=== PATIENT | male | born 1940 | race African-American/Black ===

== ENCOUNTER 2017-02-16 17:41 | Inpatient (IN) | payer OTHER ==
[~2017-02-16] VITALS: Ht 185.4 cm; Wt 68.0 kg
--- NOTE | ~2017-02-16 | 2DMMODE ---
[facility] [address] [facility] [place] [address] 2 D/M-MODE ECHOCARDIOGRAM Name: Johana SPAIN Room #: 463-P [facility] IN [facility]#: [id number] Admission: 02/16/17 Attend Phys: Malik Herman MD Discharge: Date of : 44 Date of Service: 02/17/17 1225 Report #: [id number] THIS REPORT FOR: //name// APPROVED REPORT Study performed: 02/17/2017 09:02:38 EXAM: Comprehensive 2D, Doppler, and color-flow Echocardiogram Patient Location: Bedside Room #: 463 Status: on-call Other Information Study Quality: Adequate/limited mobility Indications Congestive Heart Failure Hx: ISCM, CHF, ICD, HTN, HLP 2D Dimensions LVEF(%): 28.47 (>50%) IVSd: 11.81 (7-11mm) LVOT Diam: 21.88 (18-24mm) LVDd: 63.53 mm PWd: 12.33 (7-11mm) LVDs: 54.88 (25-40mm) Aortic Root: 35.69 mm Noriega's LVEF: 28.47 % Volumes Left Atrial Volume (Systole) Single Plane 4CH: 127.05 mL Single Plane 2CH: 98.03 mL LA ESV Index: 71.00 mL/m2 Aortic Valve AoV Peak Ravinder.: 1.01 m/s AO Peak Gr.: 4.08 mmHg LVOT Max P.31 mmHg LVOT Max V: 0.76 m/s JHONY Vmax: 2.83 cm2 Mitral Valve E/A Ratio: 2.2 MV Decel. Time: 123.23 ms MV E Max Ravinder.: 0.84 m/s MV A Ravinder.: 0.38 m/s MV PHT: 35.74 ms [facility] [place] [address] 2 D/M-MODE ECHOCARDIOGRAM Name: Johana SPAIN Room #: 463-P [facility] IN ..#: [id number] Admission: 02/16/17 Attend Phys: Malik Herman MD Discharge: Date of : 44 Date of Service: 02/17/17 1225 Report #: [id number] IVRT: 64.59 ms Pulmonary Valve PV Peak Ravinder.: 0.79 m/s PV Peak Gr.: 2.49 mmHg Tricuspid Valve TR Peak Ravinder.: 3.01 m/s RAP Estimate: 15.00 mmHg TR Peak Gr.: 36.26 mmHg PA Pressure: 51.00 mmHg Left Ventricle Left ventricle is dilated. There is normal left ventricular wall thickness. Left ventricular systolic function is severely decreased. LVEF is 20%. Severe diastolic dysfunction is present (restrictive filling). Right Ventricle The right ventricle is normal size. Right ventricle is mildly hypokinetic. Device lead is present in the right ventricle. Atria Left atrium is dilated. Right atrium is dilated. Aortic Valve The Aortic valve is mildly sclerotic. No aortic regurgitation is present. There is no aortic valvular stenosis. Mitral Valve Mitral valve leaflets are mildly calcified. Mild mitral annular calcification. Moderate mitral regurgitation. Tricuspid Valve The tricuspid valve is normal in structure. There is mild to moderate tricuspid regurgitation. The right atrial pressure is estimated at 15 mmHg. There is moderate pulmonary hypertension with an estimated PAP of 50mmHg. Pulmonic Valve The pulmonary valve is normal in structure. Trace to mild pulmonic regurgitation. Great Vessels The aortic root is normal in size. Ascending aorta is not well visualized. IVC is dilated and collapses <50% with inspiration. [address] [address] 2 D/M-MODE ECHOCARDIOGRAM Name: Johana SPAIN Room #: 463-P [facility] IN ..#: [id number] Admission: 02/16/17 Attend Phys: Malik Herman MD Discharge: Date of : 44 Date of Service: 02/17/17 1225 Report #: [id number] Pericardium There is no pericardial effusion. <Conclusion> Left ventricle is dilated. Left ventricular systolic function is severely decreased. LVEF is 20%. Severe diastolic dysfunction is present (restrictive filling). The Aortic valve is mildly sclerotic. There is no aortic valvular stenosis. Mitral valve leaflets are mildly calcified. Mild mitral annular calcification. The tricuspid valve is normal in structure. There is mild to moderate tricuspid regurgitation. The right atrial pressure is estimated at 15 mmHg. There is moderate pulmonary hypertension with an estimated PAP of 50mmHg. There is no pericardial effusion. <ELECTRONICALLY SIGNED> By: Rickey Rivers MD 02/17/17 1225 1225 1225 Rickey Rivers MD /INF
--- NOTE | ~2017-02-16 | HC ---
[facility] [place] [address] CONSULTATION Name: Johana SPAIN Room #: 463-P ADM IN .R.#: [id number] Admission: 02/16/17 Attend Phys: Malik Herman MD Discharge: Date of : 42 Report #: [id number] THIS REPORT FOR: //name// CC: Malik Fu DATE OF SERVICE: 02/17/2017 NEPHROLOGY CONSULTATION REASON FOR CONSULTATION: Chronic kidney disease. HISTORY OF PRESENT ILLNESS: The patient has long-standing ischemic cardiomyopathy with decreased left ventricular ejection fraction. He has had an AICD in for 10 years. He has chronic kidney disease as well documented in the past records, with elevated creatinines; currently creatinine at 2.3. He presents with progressive exertional dyspnea and orthopnea, which has really been going on for 5 months, but worsened in the last several days. At the time of admission, he did have some pulmonary vascular congestion and also urinary tract infection. He had an elevated lactic acid as well. PAST MEDICAL HISTORY: In addition to the above, he has had a previous history of primary liver cancer treated with implants and embolization 3 years ago, followed by Dr. Hyde, no chemotherapy. He did have prior history of cardiac arrest and prior history before that of hypertension and an inguinal hernia repair. HOME MEDICATIONS: Include aspirin 325 mg daily, clopidogrel 75 mg daily, carvedilol 12.5 mg b.i.d., furosemide 80 mg daily, potassium 20 mEq b.i.d., warfarin and atorvastatin 40 mg daily. SOCIAL HISTORY: He was a heavy smoker, but quit about 19 years ago. No substantial alcohol. He lives at home with his . REVIEW OF SYSTEMS: GENERAL: He has been feeling poorly and had been weak. EYES: His vision is okay, without problems there. ENT: Hearing okay, swallows okay. Denies mouth sores or ulcers. ENDOCRINE: No diabetes or thyroid disease. RESPIRATORY: Easily short-winded with cough and feeling that he cannot get a deep breath. CARDIAC: There has been no recent chest pain or swelling in his legs. No arrhythmias. GASTROINTESTINAL: No nausea, vomiting, diarrhea or bloody stools. GENITOURINARY: Occasionally, he has some urgency. No hematuria or stones. NEUROLOGIC: No seizure, syncope or stroke. He just has a generalized weakness. [address] [address] CONSULTATION Name: JUDITJohana Room #: 463-P [facility] IN ..#: [id number] Admission: 02/16/17 Attend Phys: Malik Herman MD Discharge: Date of : 42 Report #: [id number] SKELETAL: Denies joint pain or arthritis. SKIN: No skin rashes, lesions or ulcers. FAMILY HISTORY: Several family members on dialysis. Heavy family history for hypertension. Heavy family history for heart disease and a couple of family members with diabetes as well. Extensive history taken from the patient, from the who is at the bedside and from electronic medical record. PHYSICAL EXAMINATION: GENERAL: This is a chronically ill-appearing, thin and somewhat cachectic gentleman, who does not appear to be in acute distress, but does get a little short-winded with talking. SKIN: Unremarkable. SKELETAL: Well developed. HEENT: Extraocular movements are full. Vision intact with corrective lenses. Hearing intact. Mucous membranes moist. NECK: Supple. No carotid bruits are heard. CHEST: Shows bibasilar crackles. HEART: Regular. ABDOMEN: Soft and nontender. EXTREMITIES: Show trace to 1+ ankle edema. LABORATORY DATA: Creatinine 2.3, potassium 4.5 and BUN 53. AST is 79, ALT 74. Albumin 2.8. Hemoglobin 11.9. Urinalysis did show what appears to be UTI, with positive nitrite, white cells and some bacteria, but no proteinuria. ASSESSMENT AND PLAN: 1. Chronic kidney disease. He has chronic kidney disease in the setting of very poor cardiac performance. He has had long-standing prior hypertension. He probably has some underlying nephrosclerosis on top of that with degree of cardiorenal disease and this likely is leading to some difficulty with treating his volume overload. I will introduce torsemide at 40 mg twice daily, which I think should help, although maintenance chronic dose may just be once daily. He probably could do a little better on salt in his diet. We discussed with the patient and his . 2. Urinary tract infection, being treated, cultures pending. 3. Severe ischemic cardiomyopathy with defibrillator. 4. Prior history of severe hypertension. 5. Liver cancer. This may be an ongoing problem. This could well be what is producing the lactic acid, the elevated transaminases, etc., although passive congestion could be playing a role in this patient as well. <ELECTRONICALLY SIGNED> By: Kody Saldaña MD 02/18/17 0746 1025 1520 Kody Saldaña MD /nt
--- NOTE | ~2017-02-16 | HC ---
[facility] [place] [address] CONSULTATION Name: Johana SPAIN Room #: 463-P [facility] IN ..#: [id number] Admission: 02/16/17 Attend Phys: Malik Herman MD Discharge: 02/19/17 Date of : 42 Report #: [id number] THIS REPORT FOR: //name// CC: Malki Fu REASON FOR CONSULTATION: CHF. HISTORY OF PRESENT ILLNESS: The patient is a 77-year-old with history of ischemic cardiomyopathy, coronary artery disease, chronic renal insufficiency, liver cancer who follows with Dr. Perez. The patient reports that he has a followup appointment with Dr. Perez in about a month. The patient reports that since September, he has been experiencing worsening exertional dyspnea and fatigue. Over the past several days, his shortness of breath has worsened. He has now been experiencing some PND and orthopnea. He denies any problems with chest pain or chest tightness. He denies any presyncope, syncope or ICD shocks. He has experienced continued weight loss. REVIEW OF SYSTEMS: GENERAL: No fevers or chills. HEENT: No blurred vision. CARDIOVASCULAR: As above. PULMONARY: No productive cough. GASTROINTESTINAL: No nausea or vomiting. GENITOURINARY: No dysuria. MUSCULOSKELETAL: No myalgias or arthralgias. ENDOCRINE: No heat or cold intolerance. NEUROLOGIC: No focal weakness. PAST MEDICAL HISTORY: 1. Ischemic cardiomyopathy, EF of 19% based on a nuclear stress test in September 2011. 2. Coronary artery disease, status post myocardial infarction. 3. Cardiac catheterization by Dr. Perez in 2012 with stenting of the LAD with a drug-eluting stent for in-stent restenosis, also with a drug-eluting stent to the ramus. 4. Medtronic ICD, status post prior cardiac arrest. 5. Hypertension. 6. Hyperlipidemia. 7. Chronic renal insufficiency. 8. Prior TIA. 9. Liver cancer. SOCIAL HISTORY: Quit smoking. FAMILY HISTORY: Noncontributory. [facility] [address] [place] [address] CONSULTATION Name: Johana SPAIN Room #: 463-P [facility].#: [id number] Admission: 02/16/17 Attend Phys: Malik Herman MD Discharge: 02/19/17 Date of : 42 Report #: [id number] ALLERGIES: No known drug allergies. MEDICATIONS: Reviewed including warfarin, Coreg, aspirin and Plavix. PHYSICAL EXAMINATION: VITAL SIGNS: Temperature is 36.7, pulse 81, respiratory rate 20, blood pressure 94/63, and sats 97%. GENERAL: He is in no acute distress. HEENT: Oropharynx is clear. NECK: Supple, no thyromegaly or carotid bruits. HEART: Regular rate and rhythm. He has a displaced PMI. He does have an S3. He has mildly elevated jugular venous pressure. LUNGS: Clear bilaterally. ABDOMEN: Soft, nontender, nondistended with no hepatosplenomegaly. EXTREMITIES: There is no clubbing, cyanosis or edema. NEUROLOGICAL: Cranial nerves 2-12 are intact. LABORATORY DATA: White count is 11, hemoglobin 11, platelets 165. INR is 5.7 after receiving vitamin K, potassium is 4.5, BUN is 53, creatinine is 2.3, so he may have a UTI. His AST is 79, ALT 74, alkaline phosphatase is 180. His T-bili is high at 1.3. His troponin is negative times 1. His proBNP is 17,784. His EKG shows normal sinus rhythm with a left bundle branch block. His chest x-ray shows a massively enlarged cardiac silhouette with some mild pulmonary edema and a dual chamber ICD. A V/Q scan was negative. His ultrasound of his liver shows an 8 cm liver mass. ASSESSMENT: 1. Acute on chronic left ventricular systolic heart failure. 2. Ischemic cardiomyopathy. 3. Coronary artery disease. 4. Liver mass, 8 cm. 5. Hypertension. 6. Hyperlipidemia. 7. Chronic renal insufficiency. 8. Prior transient ischemic attack. 9. Elevated INR. PLAN: In summary, the patient is a 77-year-old with a known ischemic cardiomyopathy who appears to be on acute on chronic heart failure. He may be in a low output heart failure state at this point. He has some mild pulmonary edema, we can continue with oral Lasix. We will continue with Coreg. We will not use AVIVA or ARB due to his chronic renal insufficiency. We will obtain an echocardiogram. We will attempt to optimize his cardiac status. Dr. Perez will pick the patient up on Sunday. In terms of his elevated INR, there is no acute bleeding, so probably be easiest just to not give any more vitamin K and [address] [address] CONSULTATION Name: Johana SPAIN Room #: 463-P [facility] IN [facility]#: [id number] Admission: 02/16/17 Attend Phys: Malik Herman MD Discharge: 02/19/17 Date of : 42 Report #: [id number] just let it drift down on its own. In terms of his liver mass, this may need to be further evaluated. We will continue to follow. <ELECTRONICALLY SIGNED> By: Rickey Rivers MD 02/19/17 1552 1209 1847 Rickey Rivers MD /nt
--- NOTE | ~2017-02-16 | H ---
[facility] [place] [address] HISTORY AND PHYSICAL Name: Johana SPAIN Room #: 463-P ADM IN M.R.#: [id number] Admission: 02/16/17 Attend Phys: Malik Herman MD Discharge: Date of : 42 Report #: [id number] THIS REPORT FOR: //name// CC: Malik Fu DICTATED BY: Manjula LAYTON DATE OF SERVICE: 02/16/2017 ATTENDING PHYSICIAN: Dr. Jones. CHIEF COMPLAINT: Weakness, shortness of breath. HISTORY OF PRESENT ILLNESS: The patient is a 77-year-old male who is sent into the ER by his PCP after complaining about hemoptysis. He says he has actually had multiple episodes of hemoptysis dating back to September. He has had some episodes that have been dark red blood that occur in the morning, but it usually lightens up throughout the day and he has more pink-colored sputum. He has been having increasing shortness of breath that appears with exertions. He has also been having lower extremity edema, which has been worse over the last 2-3 weeks. He overall has been feeling very fatigued. He has had a decreased appetite. He really has not been eating and drinking very well. He is not sure if he has been having fevers because he does not have a thermometer, but he has been having chills. He normally does not require any home oxygen use. He came into the ER with these complaints and was noted to have UTI and sepsis and he has been admitted for further evaluation. PAST MEDICAL HISTORY: Ischemic cardiomyopathy with an EF of 20%, coronary artery disease, hyperlipidemia, hypertension, chronic kidney disease stage 3, cardiac arrest with ventricular fibrillation, TIA, liver cancer and COPD. PAST SURGICAL HISTORY: Defibrillator placement, C-spine surgery, cardiac stent times 3, right elbow repair, left eye repair, inguinal hernia repair and liver embolization. ALLERGIES: None. HOME MEDICATIONS: Albuterol, aspirin, Plavix, carvedilol, Lasix, Tylenol, potassium, Lipitor, Coumadin 2 mg, alternating with 5 mg. SOCIAL HISTORY: The patient is an ex-smoker, having quit in 1997 after smoking up to a pack per day since the age of 17. He is . He lives at home with his spouse. He ambulates independently. He does use alcohol very rarely. He does have a history of heavy alcohol use in the past, but quit in 1990. [address] [address] HISTORY AND PHYSICAL Name: Johana SPAIN Srinivasa Room #: 463-P [facility] IN [facility]#: [id number] Admission: 02/16/17 Attend Phys: Malik Herman MD Discharge: Date of : 42 Report #: [id number] FAMILY HISTORY: His mother had bladder cancer. His father had heart disease and an enlarged heart. REVIEW OF SYSTEMS: The patient has a history of liver cancer. He has had some sort of liver embolization done and chemo for about a year, but his followup CTs have been negative thus far. He denies requiring any radiation. LABS AND DIAGNOSTICS: WBC 10.6, hemoglobin 16.6 and platelets 196,000. Sodium 135, potassium 5.2, BUN 54, creatinine 2.4 and glucose 104. AST 79, ALT 74 and alkaline phosphatase 180. Initial lactate was 4.1; it is down to 2.6. INR is 6.3. D-dimer is 1.6. Troponins negative. V/Q showed low probability for PE. EKG showed sinus rhythm with a left bundle branch block. UA showed positive nitrites, 2+ leukocyte esterase, moderate WBCs and many bacteria; and chest x-ray showed some cardiomegaly with pulmonary vascular congestion with unchanged cardiomegaly. BNP ____. ASSESSMENT AND PLAN: 1. Mild sepsis. The patient did have elevated lactate and infection with urinary tract infection. His vitals have been stable. He was given IV fluids in the ER, despite having elevated BNP and pulmonary vascular congestion on his chest x-ray. We will continue with broad spectrum antibiotics and follow cultures. 2. Hemoptysis. INR level is elevated. ER is giving him lots of vitamin K tonight. We will repeat an INR in the morning. 3. Acute renal failure on chronic kidney disease, stage 3. Creatinine is 2.4, down from 2.8 in 2016. We will continue with hydration. If he does appear to be in any sort of overload, we will try to diurese. 4. Wydss-hh-pyuznqg respiratory failure due to chronic obstructive pulmonary disease. He is very wheezy. We will add scheduled breathing treatments and Solu-Medrol at this time. 5. Umxhh-cf-fidngxy systolic heart failure. His baseline EF is around 20%. He does have a defibrillator in place. His BNP is very elevated, but his previous BNP was 20,000 last year. We will hold off on any aggressive diuresis because of sepsis, but monitor that closely and follow echocardiogram results. 6. Transaminitis. Previous liver enzymes were normal. This may be due to hepatic congestion from congestive heart failure. We will further evaluate with an abdominal ultrasound. 7. Hypertension. Blood pressure is stable. We do need to hold his diuretics and blood pressure meds due to acute renal failure. 8. Deep venous thrombosis prophylaxis, place SCDs. [facility] [place] [address] HISTORY AND PHYSICAL Name: Johana SPAIN Room #: 463-P ADM IN M.R.#: [id number] Admission: 02/16/17 Attend Phys: Malik Herman MD Discharge: Date of : 42 Report #: [id number] We will continue to follow the patient closely throughout the hospitalization and make changes based on clinical status. By: [id number] Krishna Jones MD /nt
--- NOTE | ~2017-02-16 | EKG ---
[address] [place] [address] ELECTROCARDIOGRAM REPORT Name: Johana SPAIN Room #: 463-P ADM IN M.R.#: [id number] Admission: 02/16/17 Attend Phys: Malik Herman MD Discharge: Date of : 42 Report #: [id number] THIS REPORT FOR: //name// [facility] ED Test Date: 2017-02-16 Test Time: 17:58:22 Pat Name: Johana SPAIN Department: Room: 463 Gender: M Information Technology Assistant: Noah BASHIR : 1940 Requested By: Sally Guevara Order Number: [id number] MD: Wiley Perez Measurements Intervals Orange Rate: 80 P: 62 MA: 182 QRS: -47 QRSD: 127 T: 106 QT: 413 QTc: 477 Interpretive Statements Sinus rhythm Left axis deviation Left bundle branch block Compared to ECG 05/15/2016 17:42:56 No significant change was found Electronically Signed On 02-18-2017 15:45:24 CDT by Wiley Perez [email or web address] <ELECTRONICALLY SIGNED> By: Wiley Perez MD, [facility] 02/18/17 1545 1758 1758 Wiley Perez MD, [facility] /EPI
--- NOTE | ~2017-02-16 | HC ---
[facility] [place] [address] CONSULTATION Name: Johana SPAIN Room #: 463-P [facility] IN ..#: [id number] Admission: 02/16/17 Attend Phys: Malik Herman MD Discharge: 02/19/17 Date of : 42 Report #: [id number] THIS REPORT FOR: //name// CC: Wiley Perez MD [facility] Malik Fu MD REASON FOR CONSULTATION: History of hepatoma. HISTORY OF PRESENT ILLNESS: The patient is a very pleasant 77-year-old gentleman, who I have seen since about 07/16/2015. At that time, he was diagnosed with what was thought to be a hepatoma and was thought to be unresectable by Dr. Kirk, one of the surgeons. He had chemoembolization on 08/19/2015. He has had transarterial chemoembolization several times and his most recent CAT scan on 11/30/2016 or close to that date did not show any evidence of progressive disease. The patient is admitted today. He came in with shortness of air and also had some hemoptysis. He was found to have an elevated INR on admission here and he has since grown Klebsiella out. He also was feeling chilled at home. This is feeling better. The patient today denies any fever or pain. He says his breathing is almost back to normal. His appetite is doing well. His bowels are doing well. He did describe some slight blood tinge to his sputum, particularly in the morning and better as the day goes along. This has been new event over the last 2-3 weeks since he has been coughing more. No abdominal pain. No new arm or leg swelling. PAST MEDICAL HISTORY: Past history is notable for the hepatoma localized to the liver since July of 2015, status post TACE on several occasions. Also a history of a ischemic cardiomyopathy with an EF of about 20%; coronary artery disease, status post infarct in the past. He has had stents in the past. He has a Medtronic ICD. He has had cardiac arrest in the past, also has hypertension, hyperlipidemia, renal insufficiency and prior TIA. ALLERGIES: None known. SOCIAL HISTORY: Retired. He has quit smoking back in 1997 or 1998. MEDICATIONS: At this time in the hospital currently include warfarin 2.5, this is a decreased dose from before; carvedilol 3.125 b.i.d.; aspirin 81 mg daily; clopidogrel 75 daily; Zosyn q.8h. scheduled; Zofran p.r.n.; ipratropium and albuterol q.4h. and torsemide, which had been discontinued. Note that his microbe here included Klebsiella in his urine. LABORATORY DATA: His other lab included a BUN of 52; creatinine of 2, which is decreasing and glucose was 159. Total bilirubin 1.3, calcium 8.4, alkaline phosphatase 180. Albumin 2.1. INR when the patient came in was 6.3; it is now [address] [address] CONSULTATION Name: Johana SPAIN Room #: 463-P [facility]#: [id number] Admission: 02/16/17 Attend Phys: Malik Herman MD Discharge: 02/19/17 Date of : 42 Report #: [id number] down to 1.3. WBC is 10.6, hemoglobin 11.8, MCV 95.9, RDW 19, platelets 168,000 and has a slight white cell increase. PHYSICAL EXAMINATION: GENERAL: The patient appears his stated age. VITAL SIGNS: Height is 6 feet 1, which is 185.4 cm. Weight is 150 pounds, which is 68.3 kilograms. Blood pressure is 100/69, respirations 18 and pulse 85. Afebrile since he has been here. O2 sats 98% on 2 liters. MOOD: He is very pleasant and alert. He is eating breakfast. LUNGS: Mostly clear, without any rhonchi or rales or wheezes. HEART: Regular rate. ABDOMEN: Soft, without masses. EXTREMITIES: Without clubbing, cyanosis or edema. ASSESSMENT AND PLAN: 1. History of hepatoma. He has plans for outside CAT scan this Sunday, would hold off. This will need comparison, but he has had known liver defects from past transarterial chemoembolization. That is probably what is seen here in the ultrasound. 2. Elevated INR, probably related to infection, being managed by cardiology. 3. Complex cardiac history. Defer to Dr. Perez, but includes coronary artery disease, cardiac arrest and also EF of about 20%. 4. Renal insufficiency, watch medicines carefully. 5. Hyperlipidemia, meds per cardiology. We will follow with you. <ELECTRONICALLY SIGNED> By: Sebastián Hyde MD 02/19/17 2244 0852 1037 Sebastián Hyde MD /nt
[~2017-02-16 17:41] MED LIST: ASPIRIN EC325 M1 PO; ATORVASTATIN CA40 MG PO; AUGMENTIN PO; CARVEDILOL12.5 MG PO; CARVEDILOL6.25 MG PO; CLOPIDOGREL75 MG PO; COREG CR20 MG PO; COUMADIN 2.5MG2.5 M1 PO; COUMADIN 5 MG TA5 M1 PO; HYDROCODONE-AP1 EAC6 PO; K-DUR 20 MEQ T20 MEQ PO; K-DUR10 MEQ PO; LASIX 10 MG/10 MG/M1 PO; LASIX 20 MG TAB20 MG PO; LASIX 40 MG TAB40 M2 PO; LASIX 80 MG TAB80 M1 PO; MILK OF MA2400 MG/10 PO; NITROQUICK0.4 MG SUBLING; TYLENOL325 MG PO; VENTOLIN HFA 1818 GM INH; VICODIN 5-3001 EACH PO; ZESTRIL5 MG PO
[2017-02-16 17:42] VITALS: BP 120/77
[2017-02-16 18:30] LABS: HEMATOCRIT 41.9 % (42.0-52.0); HEMOGLOBIN 13.6 gm/dL (14.0-18.0); MCH 31.4 pg (26.0-34.0); MCHC 32.4 g/dL (28.0-37.0); MCV 96.8 fL (80.0-100.0); PLATELET COUNT 196 thou/uL (150-400); RBC 4.33 mil/uL (4.50-6.00); RDW 19.7 % (10.5-14.5); WBC 10.6 thou/uL (4.0-11.0)
[2017-02-16 18:32] LABS: MANUAL DIFF YES
[2017-02-16 18:43] LABS: CALCIUM 9.3 mg/dL (8.5-10.1); CREATININE 2.4 mg/dL (0.7-1.3); POTASSIUM 5.2 mmol/L (3.5-5.1)
[2017-02-16 18:53] LABS: ABSOLUTE NEUTROPHILS 9.5 thou/uL (1.4-8.2); ANISOCYTOSIS 1+; POLYCHROMASIA OCCASIONAL; TOTAL CELL COUNT 100
[2017-02-16 18:54] LABS: ALBUMIN 2.8 g/dL (3.4-5.0); POIKILOCYTOSIS SLIGHT; TOTAL BILIRUBIN 1.3 mg/dL (<0.1-1.0); TOTAL PROTEIN 8.2 g/dL (6.4-8.2); TROPONIN-I 0.05 ng/mL (<0.04-0.07)
[2017-02-16 19:16] LABS: URINE BILIRUBIN NEGATIVE (Negative); URINE BLOOD 1+ (Negative); URINE COLOR YELLOW; URINE GLUCOSE-RANDOM* NEGATIVE (Negative); URINE KETONES NEGATIVE (Negative); URINE NITRITE POSITIVE (Negative); URINE PROTEIN (DIPSTICK) NEGATIVE (Negative); URINE UROBILINOGEN 0.2 E.U./dl (0.2-1.0)
[2017-02-16 19:22] LABS: SQUAMOUS None Seen /LPF (0-3)
[2017-02-16 19:23] LABS: BACTERIA >30 Many /HPF (None Seen); CASTS None Seen /LPF (None Seen); CRYSTALS None Seen /LPF (None Seen); URINE RBC 3-10 Few /HPF (0-2)
[2017-02-16 19:48] LABS: PROTIME 65.2 Seconds (9.3-11.4)
[2017-02-16 19:56] LABS: INR 6.3
[2017-02-16 20:57] VITALS: BP 106/68
[2017-02-16 21:22] VITALS: BP 93/66
[2017-02-17 00:28] VITALS: BP 93/63
[2017-02-17] MEDS ORDERED: COUMADIN 2.5MG2.5 M1 PO (01:14)
[2017-02-17] MEDS ORDERED: COUMADIN 5 MG TA5 M1 PO (01:16)
[2017-02-17] MEDS ORDERED: COREG3.125 MG PO (01:16)
[2017-02-17] MEDS ORDERED: LOW DOSE ASPIRI81 M1 PO (01:16)
[2017-02-17 03:05] VITALS: BP 91/75
[2017-02-17 05:18] LABS: HEMATOCRIT 36.5 % (42.0-52.0); MCH 30.5 pg (26.0-34.0); MCHC 31.6 g/dL (28.0-37.0); MCV 96.6 fL (80.0-100.0); RBC 3.78 mil/uL (4.50-6.00); WBC 11.9 thou/uL (4.0-11.0)
[2017-02-17 05:29] LABS: HEMOGLOBIN 11.6 gm/dL (14.0-18.0)
[2017-02-17 05:33] LABS: CALCIUM 8.7 mg/dL (8.5-10.1); CREATININE 2.3 mg/dL (0.7-1.3); INR 5.7; POTASSIUM 4.5 mmol/L (3.5-5.1)
[2017-02-17 07:57] VITALS: BP 94/63
[2017-02-17 12:25] VITALS: BP 101/68
[2017-02-17 15:32] VITALS: BP 99/72
[2017-02-17 19:49] VITALS: BP 99/74
[2017-02-18 04:13] LABS: HEMOGLOBIN 11.8 gm/dL (14.0-18.0); MCH 31.3 pg (26.0-34.0); MCHC 32.7 g/dL (28.0-37.0); MCV 95.9 fL (80.0-100.0); RBC 3.76 mil/uL (4.50-6.00); WBC 10.6 thou/uL (4.0-11.0)
[2017-02-18 04:23] LABS: PROTIME 15.9 Seconds (9.3-11.4)
[2017-02-18 04:25] LABS: INR 1.5
[2017-02-18 04:32] LABS: ALBUMIN 2.1 g/dL (3.4-5.0); CALCIUM 8.7 mg/dL (8.5-10.1); CREATININE 2.3 mg/dL (0.7-1.3); POTASSIUM 3.8 mmol/L (3.5-5.1)
[2017-02-18 04:44] VITALS: BP 95/69
[2017-02-18 07:51] VITALS: BP 86/57
[2017-02-18 11:49] VITALS: BP 90/63
[2017-02-18 16:06] VITALS: BP 97/63
[2017-02-18 18:54] VITALS: BP 99/71
[2017-02-19 04:57] VITALS: BP 100/69
[2017-02-19 05:34] LABS: INR 1.3; PROTIME 13.3 Seconds (9.3-11.4)
[2017-02-19 05:40] LABS: ALBUMIN 2.1 g/dL (3.4-5.0); CALCIUM 8.4 mg/dL (8.5-10.1); PHOSPHORUS 3.5 mg/dL (2.5-4.9); POTASSIUM 3.2 mmol/L (3.5-5.1)
[2017-02-19 09:24] VITALS: BP 56/56; BP 86/56
[2017-02-19] MEDS ORDERED: TORSEMIDE20 MG PO (10:31)
[2017-02-19] MEDS ORDERED: AUGMENTIN 875875 MG PO (10:32)
[2017-02-19 10:46] VITALS: BP 86/56
== END 2017-02-19 15:38 | disposition home or self-care (01) | DRG 871 ==
LOC: ER 17:41 → 4W 20:14 → EROBS 20:14 → 4W 21:06
PROVIDERS: Hospitalist; Internal Medicine Nephrology; Nurse Practitioner Acute Care; Nurse Practitioner Family
DX: A41.9 Sepsis, unspecified organism (principal); J96.20 Acute and chronic respiratory failure, unspecified whether with hypoxia or hypercapnia; G93.40 Encephalopathy, unspecified; R65.21 Severe sepsis with septic shock; I49.01 Ventricular fibrillation; I50.23 Acute on chronic systolic (congestive) heart failure; N39.0 Urinary tract infection, site not specified; N17.9 Acute kidney failure, unspecified; I13.0 Hypertensive heart and chronic kidney disease with heart failure and stage 1 through stage 4 chronic kidney disease, or unspecified chronic kidney disease; R04.2 Hemoptysis; D68.9 Coagulation defect, unspecified; I25.5 Ischemic cardiomyopathy; R16.0 Hepatomegaly, not elsewhere classified; I27.2 Other secondary pulmonary hypertension; E87.6 Hypokalemia; E78.5 Hyperlipidemia, unspecified; E80.6 Other disorders of bilirubin metabolism; I25.10 Atherosclerotic heart disease of native coronary artery without angina pectoris; J44.9 Chronic obstructive pulmonary disease, unspecified; N18.3 Chronic kidney disease, stage 3 (moderate); R74.0 Nonspecific elevation of levels of transaminase and lactic acid dehydrogenase [LDH]; Z79.82 Long term (current) use of aspirin; Z86.74 Personal history of sudden cardiac arrest; Z87.891 Personal history of nicotine dependence; Z86.73 Personal history of transient ischemic attack (TIA), and cerebral infarction without residual deficits; Z85.05 Personal history of malignant neoplasm of liver; Z98.62 Peripheral vascular angioplasty status; Z95.810 Presence of automatic (implantable) cardiac defibrillator; Z79.899 Other long term (current) drug therapy; Z83.3 Family history of diabetes mellitus; Z82.49 Family history of ischemic heart disease and other diseases of the circulatory system; Z79.01 Long term (current) use of anticoagulants
CPT/HCPCS: 10045

== ENCOUNTER 2017-03-24 00:24 | Inpatient (IN) | payer OTHER ==
[2017-03-24] VITALS (8 sets, daily range): BP systolic 84–148; BP diastolic 57–116
[~2017-03-24] VITALS: Ht 185.4 cm; Wt 63.5 kg
--- NOTE | ~2017-03-24 | EKG ---
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
[~2017-03-24 00:24] MED LIST changes: +AUGMENTIN 875875 MG PO; +COREG3.125 MG PO; +LOW DOSE ASPIRI81 M1 PO; +TORSEMIDE20 MG PO
[2017-03-24 01:08] LABS: ABSOLUTE NEUTROPHILS 3.9 thou/uL (1.4-8.2); BASOPHILS 0.9 % (0.0-2.0); EOSINOPHILS 1.4 % (0.0-3.0); HEMATOCRIT 42.4 % (42.0-52.0); HEMOGLOBIN 13.5 gm/dL (14.0-18.0); LYMPHOCYTES 14.5 % (24.0-44.0); MCH 30.6 pg (26.0-34.0); MCHC 31.8 g/dL (28.0-37.0); MCV 96.4 fL (80.0-100.0); MONOCYTES 7.3 % (1.0-8.0); PLATELET COUNT 103 thou/uL (150-400); POLYS 75.9 % (36.0-66.0); RDW 19.4 % (10.5-14.5); WBC 5.2 thou/uL (4.0-11.0)
[2017-03-24 01:10] LABS: MANUAL DIFF NO
[2017-03-24 01:45] LABS: APTT 32.5 Seconds (24.5-32.8); INR 2.6; PROTIME 26.1 Seconds (9.3-11.4)
[2017-03-24 02:02] LABS: CALCIUM 8.8 mg/dL (8.5-10.1); CREATININE 2.1 mg/dL (0.7-1.3); POTASSIUM 5.2 mmol/L (3.5-5.1)
[2017-03-24 02:12] LABS: TROPONIN-I 0.05 ng/mL (<0.04-0.07)
[2017-03-25 00:32] VITALS: BP 83/59
[2017-03-25 04:42] VITALS: BP 99/68
[2017-03-25 05:50] LABS: HEMATOCRIT 41.2 % (42.0-52.0); HEMOGLOBIN 13.3 gm/dL (14.0-18.0); MCH 30.6 pg (26.0-34.0); MCHC 32.2 g/dL (28.0-37.0); MCV 94.9 fL (80.0-100.0); RBC 4.34 mil/uL (4.50-6.00); RDW 18.9 % (10.5-14.5); WBC 4.3 thou/uL (4.0-11.0)
[2017-03-25 06:06] LABS: CALCIUM 8.5 mg/dL (8.5-10.1); CREATININE 2.1 mg/dL (0.7-1.3); PHOSPHORUS 3.7 mg/dL (2.5-4.9); POTASSIUM 3.7 mmol/L (3.5-5.1)
[2017-03-25 06:07] LABS: INR 2.7; PROTIME 26.8 Seconds (9.3-11.4)
[2017-03-25 08:06] VITALS: BP 93/60
[2017-03-25 12:01] VITALS: BP 95/68
[2017-03-25 16:00] VITALS: BP 96/66
[2017-03-25 19:15] VITALS: BP 95/68
[2017-03-25 20:11] LABS: MAGNESIUM 2.1 mg/dL (1.8-2.4); POTASSIUM 3.6 mmol/L (3.5-5.1)
[2017-03-26 04:18] VITALS: BP 89/55
[2017-03-26 05:20] LABS: INR 2.7; PROTIME 27.4 Seconds (9.3-11.4)
[2017-03-26 05:37] LABS: CALCIUM 8.5 mg/dL (8.5-10.1); CREATININE 1.9 mg/dL (0.7-1.3); POTASSIUM 3.7 mmol/L (3.5-5.1)
[2017-03-26 07:05] VITALS: BP 82/57
[2017-03-26 08:14] VITALS: BP 86/64
[2017-03-26 11:11] VITALS: BP 89/64
[2017-03-26] MEDS ORDERED: AUGMENTIN 875875 MG PO ×2 (13:34→13:43)
[2017-03-26] MEDS ORDERED: PROBIOTIC1 EAC2 PO (13:34)
[2017-03-26] MEDS ORDERED: MUCINEX TA600 MG/TA2 PO (13:34)
[2017-03-26] MEDS ORDERED: MIRALAX17 GM PO (13:34)
[2017-03-26] MEDS ORDERED: VENTOLIN HFA 1818 GM INH (13:43)
[2017-03-26] MEDS ORDERED: DUONEB 2.5-0.5 M3 ML INH (13:43)
[2017-03-26 14:12] VITALS: BP 89/64
== END 2017-03-26 15:11 | disposition home or self-care (01) | DRG 177 ==
LOC: ER 00:24 → 4W 03:02 → EROBS 03:02 → 4W 03:29
PROVIDERS: Emergency Medicine; Internal Medicine Endocrinology, Diabetes & Metabolism; Nurse Practitioner Acute Care; Nurse Practitioner Family
DX: J69.0 Pneumonitis due to inhalation of food and vomit (principal); I50.23 Acute on chronic systolic (congestive) heart failure; I13.0 Hypertensive heart and chronic kidney disease with heart failure and stage 1 through stage 4 chronic kidney disease, or unspecified chronic kidney disease; R04.2 Hemoptysis; J44.0 Chronic obstructive pulmonary disease with (acute) lower respiratory infection; C22.0 Liver cell carcinoma; E46 Unspecified protein-calorie malnutrition; Z68.1 Body mass index [BMI] 19.9 or less, adult; I25.10 Atherosclerotic heart disease of native coronary artery without angina pectoris; I25.5 Ischemic cardiomyopathy; E78.5 Hyperlipidemia, unspecified; N18.3 Chronic kidney disease, stage 3 (moderate); I95.9 Hypotension, unspecified; Z86.74 Personal history of sudden cardiac arrest; Z86.73 Personal history of transient ischemic attack (TIA), and cerebral infarction without residual deficits; Z95.0 Presence of cardiac pacemaker; Z87.891 Personal history of nicotine dependence; Z79.899 Other long term (current) drug therapy; Z79.01 Long term (current) use of anticoagulants; Z82.49 Family history of ischemic heart disease and other diseases of the circulatory system; Z80.52 Family history of malignant neoplasm of bladder; Z95.5 Presence of coronary angioplasty implant and graft; Z87.440 Personal history of urinary (tract) infections
CPT/HCPCS: 10045

== ENCOUNTER 2017-04-11 18:50 | Inpatient (IN) | payer OTHER ==
[~2017-04-11] VITALS: Ht 185.4 cm; Wt 64.4 kg
--- NOTE | ~2017-04-11 | EKG ---
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: NATHALIA : 1940 Requested By: Alex Bright Order Number: [id number] MD: Wiley Perez Measurements Intervals [place] Rate: 75 P: 71 [place]: 193 QRS: -55 QRSD: 134 T: 92 QT: 441 QTc: 493 Interpretive Statements Sinus rhythm Left atrial enlargement Nonspecific IVCD with LAD Compared to ECG 03/24/2017 00:43:49 Atrial premature complexes are no longer present Electronically Signed On 04-13-2017 8:44:42 CDT by Wiley Perez [email or web address] <ELECTRONICALLY SIGNED> By: Wiley Perez MD, [facility] 04/13/1744 34 34 Wiley Perez MD, [facility] /EPI
--- NOTE | ~2017-04-11 | CNG ---
[facility] [place] [address] CYTO-NONGYN REPORT PROCEDURE Name: Johana HAYES Room #: 453-P ADM IN M.R.#: [id number] Admission: 04/11/17 Date of : 44 Discharge: Report #: [id number] Path Case #: [id number] CYTOPATHOLOGY REPORT COLLECTION DATE: 04/18/2017 RECEIVED DATE: 04/18/2017 SUBMITTING PHYS: Dr. Tereso Ware OTHER PHYS: Dr. Malik Herman CLINICAL HISTORY: HCAP, Dyapsnea, Hyperkalemia SPECIMEN(S) RECEIVED: A.Bronchial wash, Right lung * * * * * * * * * * * * FINAL DIAGNOSIS: A. Bronchial wash, Right lung: - No malignant cells identified. - Bronchial epithelial cells, alveolar macrophages, and squamous epithelial cells with fungal organisms (yeast and pseudohyphae) are present. PATHOLOGIST: Adwoa Randle M.D. REPORT ELECTRONICALLY SIGNED BY: Adwoa Randle M.D. DATE/TIME: 04/19/2017 13:51 * * * * * * * * * * * * GROSS PATHOLOGY: A. Bronchial wash, Right lung: The specimen is submitted unfixed, labeled "Johana Hayes". Received by the Cytology Department is 12 mL of cloudy pink tinted fluid. One ThinPrep slide was prepared. (mm 04.18.2017) MICA INSPECTOR(S): NUBIA Hale(ASCP) INITIAL CPT CODE(S): A; 02850 Professional services performed by [facility] at [facility] [address], [place] [address] Technical services performed by [facility] at [address] [place] [address]., [address], [place] [address]. [facility] [address] [place] [address], [address] [place] [address] [facility] [address] [place] [address] CYTO-NONGYN REPORT PROCEDURE Name: Johana HAYES Room #: 453-P ADM IN M.R.#: [id number] Admission: 04/11/17 Date of : 44 Discharge: Report #: [id number] Path Case #: [id number] PHONE: [phone] DIRECTOR: Kaleb Villa M.D. * * * END OF REPORT * * *
--- NOTE | ~2017-04-11 | HC ---
[facility] [place] [address] CONSULTATION Name: Johana SPAIN Room #: 453-P ADM IN ..#: [id number] Admission: 04/11/17 Attend Phys: Malik Herman MD Discharge: Date of : 44 Report #: [id number] THIS REPORT FOR: //name// CC: Wiley Perez MD [facility] Kody Ware MD HISTORY OF PRESENT ILLNESS: The patient is a 77-year-old gentleman with a history of known hepatocellular carcinoma diagnosed in the past on 06/25/2015. He underwent chemoembolization in about August 2015 and has been stable without progression since that time. He has had CAT scans in the past and also PET scans within the last several months. Note that CAT scan of the chest, cutting top of an abdomen, did see some pulmonary changes I believe in about June or July 2016. The patient has had some followup scans I believe and had seen an outside pulmonary doctor. There has been concern about whether this may be either metastatic hepatoma, which will be little bit unlikely given this presentation, perhaps a new lung cancer or slowly resolving atypical pneumonia. The patient was admitted for progressive shortness of breath. He denies any fevers or chills, does have a slight cough, may be a little worse, not necessarily more productive. Weight has been stable. No headache. No swallowing troubles. Did have an episode of leg swelling about a week or so ago. This had resolved. He denies really any pain. No change in his bowel habits. No new constipation. No new nausea or vomiting. No blood in his urine or stool. Note that he had recently been in the hospital for pneumonia and possible sepsis. PAST HISTORY: The patient has a history of hepatoma that is thought to be localized since about July 2015. He had transarterial chemoembolization at least once. He also has a history of ischemic cardiomyopathy with an EF of 20%, coronary artery disease, infarct in the past, had stents. He has a [employer] ICD defibrillator. Has had cardiac arrest in the past. Also has a history of hypertension, hyperlipidemia, renal insufficiency and possible TIA. ALLERGIES: None known. 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 Quit smoking about 1997 or so. MEDICATIONS: At this time in the hospital include warfarin 2.5 mg several days a week, Lipitor 40 mg at bedtime, levofloxacin this admission, vancomycin this admission, MiraLax 17 g daily, torsemide 40 mg daily, Tylenol p.r.n., potassium chloride 20 mEq b.i.d., Lactobacillus 1 cap daily, enteric-coated aspirin 81 mg daily, clopidogrel 75 mg daily, guaifenesin 600 mg b.i.d., carvedilol 3.125 mg b.i.d., pantoprazole 40 mg daily, ipratropium and albuterol 3 mL respiratory [address] [address] CONSULTATION Name: Johana SPAIN Room #: 453-P [facility] IN ..#: [id number] Admission: 04/11/17 Attend Phys: Malik Herman MD Discharge: Date of : 44 Report #: [id number] therapy q. 4., nitroglycerin p.r.n. and Zofran p.r.n. PHYSICAL EXAMINATION: GENERAL: The patient appears his stated age. VITAL SIGNS: Height is 6 feet 1, which is 185.4 cm; weight 142 pounds, which is 64.4 kilograms; recent blood pressure is 96/49; O2 sat 96%; respirations 18; pulse 81 and temperature afebrile at 98.4. MOOD: The patient is alert and pleasant. He is awake, watching TV. Family member in the room. NEUROLOGIC: Moving all extremities. His face appears symmetrical. Answers questions well and thoughtfully. Speech pattern normal. LYMPHATICS: No enlarged lymph nodes in the supraclavicular, cervical, axillary or inguinal regions. ABDOMEN: Soft without masses. EXTREMITIES: Without clubbing or cyanosis, may be trace edema if any. LABORATORY REVIEW: Has a BUN of 50 recently and creatinine at 2.2, recent admit. Had an AST of 79 and ALT of 74. Note that it was last admission. Albumin last admit 2. INR here 2.3. White count 4.7, hemoglobin 12.9, MCV 94.7 and platelets 113. Differential nonacute with few extra neutrophils. ASSESSMENT AND PLAN: 1. Hepatoma, not known to be progressive. 2. Abnormal CAT scan, worrisome for either infection or neoplasm. We will have images from [facility] clouded over for comparison for availability from pulmonary. So they can consider whether bronchoscopy or cultures or biopsies may be appropriate. 3. Coronary artery disease with stents and defibrillator and cardiomyopathy. Defer to Cardiology. Continues carvedilol, torsemide and other meds. 4. Hyperlipidemia. Continue statins. 5. Chronic kidney disease. Monitor medicine usage. 6. Cardiac arrhythmia and risk for strokes and clots. Continues Coumadin. 7. Mild thrombocytopenia. Continue monitoring. <ELECTRONICALLY SIGNED> By: Sebastián Hyde MD 04/16/17 0723 0737 0910 Sebastián Hyde MD /harleen
[~2017-04-11 18:50] MED LIST changes: +DUONEB 2.5-0.5 M3 ML INH; +MIRALAX17 GM PO; +MUCINEX TA600 MG/TA2 PO; +PROBIOTIC1 EAC2 PO
[2017-04-11 18:53] VITALS: BP 85/60
[2017-04-11 19:52] LABS: ABSOLUTE NEUTROPHILS 2.7 thou/uL (1.4-8.2); BASOPHILS 1.4 % (0.0-2.0); EOSINOPHILS 1.4 % (0.0-3.0); HEMOGLOBIN 14.1 gm/dL (14.0-18.0); LYMPHOCYTES 17.8 % (24.0-44.0); MANUAL DIFF NO; MCH 30.8 pg (26.0-34.0); MCV 96.1 fL (80.0-100.0); PLATELET COUNT 121 thou/uL (150-400); POLYS 71.4 % (36.0-66.0); RBC 4.58 mil/uL (4.50-6.00); RDW 19.1 % (10.5-14.5); WBC 3.8 thou/uL (4.0-11.0)
[2017-04-11 20:02] LABS: CALCIUM 9.4 mg/dL (8.5-10.1); CREATININE 2.5 mg/dL (0.7-1.3); POTASSIUM 5.4 mmol/L (3.5-5.1)
[2017-04-11 20:16] LABS: TROPONIN-I 0.06 ng/mL (<0.04-0.07)
[2017-04-11 22:44] VITALS: BP 91/70
[2017-04-11 23:06] VITALS: BP 91/70
[2017-04-11 23:45] VITALS: BP 94/71
[2017-04-12 04:24] VITALS: BP 75/51; BP 92/65
[2017-04-12 04:46] VITALS: BP 92/65
[2017-04-12 06:40] LABS: HEMOGLOBIN 12.9 gm/dL (14.0-18.0); MCH 30.4 pg (26.0-34.0); MCHC 32.3 g/dL (28.0-37.0); MCV 94.1 fL (80.0-100.0); RBC 4.25 mil/uL (4.50-6.00); RDW 19.1 % (10.5-14.5); WBC 3.8 thou/uL (4.0-11.0)
[2017-04-12 06:52] LABS: INR 2.3; PROTIME 23.1 Seconds (9.3-11.4)
[2017-04-12 07:02] LABS: CALCIUM 8.8 mg/dL (8.5-10.1); CREATININE 2.3 mg/dL (0.7-1.3); POTASSIUM 4.5 mmol/L (3.5-5.1)
[2017-04-12 07:39] VITALS: BP 97/58
[2017-04-12 17:06] VITALS: BP 85/58
[2017-04-12 18:45] VITALS: BP 79/53
[2017-04-13] VITALS (7 sets, daily range): BP systolic 81–99; BP diastolic 49–72
[2017-04-13 06:57] LABS: ABSOLUTE NEUTROPHILS 3.7 thou/uL (1.4-8.2); BASOPHILS 0.6 % (0.0-2.0); EOSINOPHILS 1.2 % (0.0-3.0); HEMATOCRIT 39.7 % (42.0-52.0); HEMOGLOBIN 12.9 gm/dL (14.0-18.0); LYMPHOCYTES 11.9 % (24.0-44.0); MCH 30.9 pg (26.0-34.0); MCHC 32.6 g/dL (28.0-37.0); MCV 94.7 fL (80.0-100.0); MONOCYTES 7.5 % (1.0-8.0); PLATELET COUNT 113 thou/uL (150-400); POLYS 78.8 % (36.0-66.0); RBC 4.19 mil/uL (4.50-6.00); RDW 18.7 % (10.5-14.5); WBC 4.7 thou/uL (4.0-11.0)
[2017-04-13 07:04] LABS: MANUAL DIFF NO
[2017-04-13 07:09] LABS: CALCIUM 8.9 mg/dL (8.5-10.1); CREATININE 2.2 mg/dL (0.7-1.3); POTASSIUM 4.2 mmol/L (3.5-5.1)
[2017-04-13 16:17] LABS: APTT 31.6 Seconds (24.5-32.8); INR 2.2; PROTIME 20.8 Seconds (9.3-11.4)
[2017-04-14 01:09] LABS: ABSOLUTE NEUTROPHILS 3.2 thou/uL (1.4-8.2); BASOPHILS 0.7 % (0.0-2.0); EOSINOPHILS 1.3 % (0.0-3.0); HEMATOCRIT 42.2 % (42.0-52.0); HEMOGLOBIN 13.5 gm/dL (14.0-18.0); LYMPHOCYTES 15.6 % (24.0-44.0); MCH 30.6 pg (26.0-34.0); MCHC 32.1 g/dL (28.0-37.0); MCV 95.3 fL (80.0-100.0); MONOCYTES 6.4 % (1.0-8.0); PLATELET COUNT 108 thou/uL (150-400); RBC 4.43 mil/uL (4.50-6.00); WBC 4.2 thou/uL (4.0-11.0)
[2017-04-14 01:10] LABS: MANUAL DIFF NO
[2017-04-14 01:24] LABS: CALCIUM 8.9 mg/dL (8.5-10.1); CREATININE 2.1 mg/dL (0.7-1.3); POTASSIUM 4.2 mmol/L (3.5-5.1)
[2017-04-14 04:00] VITALS: BP 151/133
[2017-04-14 04:15] VITALS: BP 93/71
[2017-04-14 07:31] VITALS: BP 83/69
[2017-04-14 11:27] VITALS: BP 85/54
[2017-04-14 15:19] VITALS: BP 100/77
[2017-04-14 19:20] VITALS: BP 95/73
[2017-04-15 01:50] LABS: ABSOLUTE NEUTROPHILS 3.7 thou/uL (1.4-8.2); BASOPHILS 1.1 % (0.0-2.0); HEMATOCRIT 42.6 % (42.0-52.0); HEMOGLOBIN 13.9 gm/dL (14.0-18.0); LYMPHOCYTES 13.5 % (24.0-44.0); MCH 30.3 pg (26.0-34.0); MCHC 32.6 g/dL (28.0-37.0); MONOCYTES 7.8 % (1.0-8.0); PLATELET COUNT 114 thou/uL (150-400); POLYS 76.6 % (36.0-66.0); RBC 4.58 mil/uL (4.50-6.00); WBC 4.8 thou/uL (4.0-11.0)
[2017-04-15 01:55] LABS: MANUAL DIFF NO
[2017-04-15 02:01] LABS: CALCIUM 9.4 mg/dL (8.5-10.1); CREATININE 2.1 mg/dL (0.7-1.3); POTASSIUM 4.6 mmol/L (3.5-5.1)
[2017-04-15 02:50] LABS: INR 1.8; PROTIME 18.3 Seconds (9.3-11.4)
[2017-04-15 02:51] LABS: APTT 103.4 Seconds (24.5-32.8)
[2017-04-15 04:45] VITALS: BP 102/72
[2017-04-15 07:22] VITALS: BP 88/65
[2017-04-15 11:26] VITALS: BP 91/75
[2017-04-15 15:07] VITALS: BP 92/74
[2017-04-15 19:10] VITALS: BP 94/70
[2017-04-16 03:30] VITALS: BP 95/67
[2017-04-16 06:13] LABS: HEMATOCRIT 41.6 % (42.0-52.0); HEMOGLOBIN 13.5 gm/dL (14.0-18.0); MCH 30.7 pg (26.0-34.0); MCHC 32.5 g/dL (28.0-37.0); MCV 94.4 fL (80.0-100.0); RBC 4.4 mil/uL (4.50-6.00); RDW 19.1 % (10.5-14.5); WBC 5.1 thou/uL (4.0-11.0)
[2017-04-16 06:23] LABS: CALCIUM 9.1 mg/dL (8.5-10.1); CREATININE 2.2 mg/dL (0.7-1.3)
[2017-04-16 06:24] LABS: INR 1.6; PROTIME 16.5 Seconds (9.3-11.4)
[2017-04-16 07:28] VITALS: BP 100/71
[2017-04-16 11:44] LABS: INR 1.7; PROTIME 17.5 Seconds (9.3-11.4)
[2017-04-16 12:03] VITALS: BP 85/63
[2017-04-16 15:45] VITALS: BP 83/57
[2017-04-16 19:23] VITALS: BP 89/65
[2017-04-17 04:28] VITALS: BP 94/68
[2017-04-17 07:18] VITALS: BP 106/70
[2017-04-17 07:31] LABS: HEMATOCRIT 40.7 % (42.0-52.0); MCH 30.5 pg (26.0-34.0); MCV 95.3 fL (80.0-100.0); RBC 4.27 mil/uL (4.50-6.00); RDW 19.3 % (10.5-14.5); WBC 4.3 thou/uL (4.0-11.0)
[2017-04-17 07:38] LABS: CALCIUM 9.2 mg/dL (8.5-10.1); CREATININE 2.5 mg/dL (0.7-1.3); POTASSIUM 5.1 mmol/L (3.5-5.1)
[2017-04-17 13:27] VITALS: BP 125/85
[2017-04-17 17:07] VITALS: BP 135/75
[2017-04-17 19:26] VITALS: BP 90/66
[2017-04-18 04:13] VITALS: BP 93/68
[2017-04-18 06:27] LABS: ABSOLUTE NEUTROPHILS 3.7 thou/uL (1.4-8.2); BASOPHILS 0.8 % (0.0-2.0); EOSINOPHILS 1.3 % (0.0-3.0); HEMATOCRIT 40.8 % (42.0-52.0); HEMOGLOBIN 13.3 gm/dL (14.0-18.0); LYMPHOCYTES 15.6 % (24.0-44.0); MCH 30.8 pg (26.0-34.0); MCHC 32.5 g/dL (28.0-37.0); MCV 94.7 fL (80.0-100.0); MONOCYTES 7.6 % (1.0-8.0); PLATELET COUNT 86 thou/uL (150-400); POLYS 74.7 % (36.0-66.0); RBC 4.31 mil/uL (4.50-6.00); RDW 18.6 % (10.5-14.5); WBC 4.9 thou/uL (4.0-11.0)
[2017-04-18 06:31] LABS: MANUAL DIFF NO
[2017-04-18 06:40] LABS: CALCIUM 9.2 mg/dL (8.5-10.1); CREATININE 2.4 mg/dL (0.7-1.3); POTASSIUM 4.8 mmol/L (3.5-5.1)
[2017-04-18 07:17] VITALS: BP 92/68
[2017-04-18 11:08] VITALS: BP 104/77
[2017-04-18 15:22] VITALS: BP 110/82
[2017-04-18 19:40] VITALS: BP 104/81
[2017-04-19] VITALS (7 sets, daily range): BP systolic 83–101; BP diastolic 56–76
[2017-04-19 06:00] LABS: HEMATOCRIT 39.6 % (42.0-52.0); HEMOGLOBIN 12.7 gm/dL (14.0-18.0); MCH 30.7 pg (26.0-34.0); MCV 95.9 fL (80.0-100.0); PLATELET COUNT 73 thou/uL (150-400); RBC 4.13 mil/uL (4.50-6.00); RDW 19.1 % (10.5-14.5)
[2017-04-19 06:05] LABS: MANUAL DIFF YES
[2017-04-19 06:20] LABS: CREATININE 2.4 mg/dL (0.7-1.3)
[2017-04-19 07:52] LABS: ABSOLUTE NEUTROPHILS 4.2 thou/uL (1.4-8.2); ANISOCYTOSIS 1+; PLATELET ESTIMATE DECREASED; POLYCHROMASIA SLIGHT; TOTAL CELL COUNT 100
[2017-04-19] MEDS ORDERED: ALPRAZOLAM 0.0.25 M1 PO (08:41)
[2017-04-19] MEDS ORDERED: OXYCODONE HCL10 MG PO (08:41)
[2017-04-19] MEDS ORDERED: CLOPIDOGREL75 MG PO (08:49)
[2017-04-19] MEDS ORDERED: LEVAQUIN 250 M250 MG PO (08:49)
[2017-04-19] MEDS ORDERED: ENOXAPARIN60 MG/0.1 SUBQ (08:49)
[2017-04-19 09:53] LABS: INR 1.5
== END 2017-04-19 19:23 | disposition home health service (06) | DRG 871 ==
LOC: ER 18:50 → EROBS 22:21 → 4W 22:21
PROVIDERS: Emergency Medicine; Family Medicine; Hospitalist; Internal Medicine Pulmonary Disease; Nurse Practitioner Family; Nurse Practitioner Gerontology
PROC: 0B948ZX Drainage of Right Upper Lobe Bronchus, Via Natural or Artificial Opening Endoscopic, Diagnostic (ICD-10-PCS; principal; 2017-04-18)
PROC: 0B968ZX Drainage of Right Lower Lobe Bronchus, Via Natural or Artificial Opening Endoscopic, Diagnostic (ICD-10-PCS; principal; 2017-04-18)
PROC: 0B958ZX Drainage of Right Middle Lobe Bronchus, Via Natural or Artificial Opening Endoscopic, Diagnostic (ICD-10-PCS; principal; 2017-04-18)
DX: A41.9 Sepsis, unspecified organism (principal); I50.23 Acute on chronic systolic (congestive) heart failure; G93.40 Encephalopathy, unspecified; E43 Unspecified severe protein-calorie malnutrition; J18.1 Lobar pneumonia, unspecified organism; I13.0 Hypertensive heart and chronic kidney disease with heart failure and stage 1 through stage 4 chronic kidney disease, or unspecified chronic kidney disease; J44.0 Chronic obstructive pulmonary disease with (acute) lower respiratory infection; C22.0 Liver cell carcinoma; I47.2 Ventricular tachycardia; J44.1 Chronic obstructive pulmonary disease with (acute) exacerbation; D68.59 Other primary thrombophilia; C34.90 Malignant neoplasm of unspecified part of unspecified bronchus or lung; Z68.1 Body mass index [BMI] 19.9 or less, adult; N18.3 Chronic kidney disease, stage 3 (moderate); I25.10 Atherosclerotic heart disease of native coronary artery without angina pectoris; I25.5 Ischemic cardiomyopathy; E78.5 Hyperlipidemia, unspecified; E87.5 Hyperkalemia; I49.9 Cardiac arrhythmia, unspecified; D69.6 Thrombocytopenia, unspecified; I27.2 Other secondary pulmonary hypertension; G47.00 Insomnia, unspecified; Z86.73 Personal history of transient ischemic attack (TIA), and cerebral infarction without residual deficits; Z87.891 Personal history of nicotine dependence; Z82.49 Family history of ischemic heart disease and other diseases of the circulatory system; Z80.52 Family history of malignant neoplasm of bladder; Z79.01 Long term (current) use of anticoagulants; Z86.74 Personal history of sudden cardiac arrest; Z92.21 Personal history of antineoplastic chemotherapy
CPT/HCPCS: 10045